=== PATIENT | male | born 1985 | race Two or more races ===

== ENCOUNTER 2020-05-29 09:52 | Emergency (ER) | payer OTHER ==
[~2020-05-29] VITALS: Ht 190.5 cm; Wt 124.7 kg
[2020-05-29] MEDS ORDERED: VOLTAREN100 GM TOP (13:52)
[2020-05-29] MEDS ORDERED: KETO10TA2 PO (13:52)
[2020-05-29] MEDS ORDERED: CYCLOBENZAPRINE10 MG PO (13:52)
== END 2020-05-29 14:13 ==
LOC: ER 09:52
DX: S13.8XXA Sprain of joints and ligaments of other parts of neck, initial encounter (principal); S33.5XXA Sprain of ligaments of lumbar spine, initial encounter; S20.211A Contusion of right front wall of thorax, initial encounter; V49.88XA Car occupant (driver) (passenger) injured in other specified transport accidents, initial encounter; Y93.89 Activity, other specified; Y92.488 Other paved roadways as the place of occurrence of the external cause; Y99.8 Other external cause status